=== PATIENT | female | born 2000 | race African-American/Black ===

== ENCOUNTER 2023-07-05 17:04 | Emergency (ER) | payer OTHER, SELFPAY ==
[2023-07-05 17:06] VITALS: BP 111/84; PULSE 101; RESP 17; TEMP 36.4; O2SAT 99
[2023-07-05 19:48] VITALS: BP 106/64; PULSE 57; RESP 18; O2SAT 99
[2023-07-05 21:51] LABS: Appearance Urine Clear (Clear); Bilirubin Urine Negative (Negative); Blood Urine Negative (Negative); Color Urine Yellow (Yellow); Glucose Urine UA Negative (Negative); Ketones Urine 1+ mg/dL (Negative); Leukocyte Esterase Ur Negative LEU/UL (Negative); Nitrate Urine Negative (Negative); Protein Urine Negative (Negative); Specific Grav Ur 1.025 (1.001-1.035); Urobilinogen Urine 0.2 mg/dL (<2.0)
[2023-07-05 22:01] LABS: Add Urine Microscopic? NO
--- NOTE | 2023-07-05 22:06 | ED.ABDPAIN ---
HPI - Abdominal Pain General Chief Complaint: Abdominal Pain Stated Complaint: ab pain, nausea Time Seen by Provider: 07/05/23 20:23 Source: patient Mode of arrival: EMS Limitations: no limitations History of Present Illness HPI narrative: Patient is a 22-year-old female who presents the ED via EMS with report of abdominal pain. Patient reports she suddenly developed left-sided abdominal pain around 2 PM today while at school. Pain persisted and she developed nausea and vomiting. She went to the [facility] and was sent here for further evaluation. Patient reports she has had this pain several times over the past few years. She states she can usually feel when it is coming on as her stomach will start to clench. She states if she can eat something fast enough, the pain will subside. If the pain does occur, it typically resolves after taking a nap. Patient fell asleep in the ED waiting room and denies any pain currently upon my evaluation. She denies any nausea currently. She has never been evaluated for this pain before. Denies any recent illness, fevers, diarrhea, constipation, vaginal bleeding, vaginal discharge, urinary symptoms. Review of Systems Review of Systems: CONSTITUTIONAL: Denies fever, chills, or sweats. CARDIOVASCULAR: Denies chest pain. RESPIRATORY: Denies dyspnea. GASTROINTESTINAL: See HPI. GENITOURINARY: Denies dysuria or hematuria. SKIN: Denies rash or itching. MUSCULOSKELETAL: Denies back pain, joint pain, or myalgia. All systems reviewed & are unremarkable except as noted in HPI and below Exam Narrative: GENERAL: Well appearing, well-nourished, non-toxic, in no acute distress. HEAD: Normocephalic, atraumatic. NECK: Supple. No adenopathy, no masses. RESPIRATORY: Airway patent, respirations nonlabored. Clear to auscultation bilaterally, no rales, rhonchi, wheezing. CARDIOVASCULAR: Regular rate and rhythm without murmurs, rubs, or gallops. Peripheral pulses 2+ and equal bilaterally. ABDOMINAL: Soft, no tenderness throughout abdomen, nondistended, no hepatosplenomegaly. Normoactive BS. MUSCULOSKELETAL: Moves all extremities. Strength/ROM intact without gross deformities. SKIN: Warm, dry, normal color. No rashes. NEURO: A&O X3. Speech clear. Cranial nerves II-XII grossly intact. Steady gait. No ataxic movements. PSYCHIATRIC: Appropriate mood and affect. Normal interaction. Course Vital Signs Vital signs: Vital Signs Temperature 97.5 F L 07/05/23 17:06 Pulse Rate 101 H 07/05/23 17:06 Respiratory Rate 17 07/05/23 17:06 Blood Pressure 111/84 07/05/23 17:06 Pulse Oximetry 99 07/05/23 17:06 Oxygen Delivery Room Air 07/05/23 17:06 Temperature 97.5 F L 07/05/23 17:06 Pulse Rate 57 L 07/05/23 19:48 Respiratory Rate 18 07/05/23 19:48 Blood Pressure 106/64 07/05/23 19:48 Pulse Oximetry 99 07/05/23 19:48 Oxygen Delivery Room Air 07/05/23 17:06 MDM - Abdominal Pain MDM Narrative Medical decision making narrative: Patient presented to ED with left-sided abdominal pain, several year hx of similar pain, typically related to having an empty stomach. Pain resolved by the time of my evaluation. Patient asymptomatic. No abdominal tenderness on exam. No signs of surgical abdomen. Vital stable by the time of my evaluation. Urinalysis negative. Patient denies any concern for or STDs. No history of ovarian cyst that she is aware of. Patient remains asymptomatic and nontender throughout her abdomen on repeat evaluations. No indication for further imaging at this time. Laboratory studies ordered however patient is a difficult stick, issues with hemolysis. CBC did result with minimal leukocytosis of 11.3. Patient did report vomiting prior to arrival, may contribute to leukocytosis. She is denying any other infectious symptoms. CMP frequently hemolyzed. When I discussed this with patient, she refused any further blood draw. She would like to be dischar
[2023-07-05 23:31] LABS: Basophils Absolute Auto 0.1 K/mm3 (0.0-0.1); Basophils Percent Auto 0.5 % (0.2-1.2); Eosinophils Percent Auto 0.2 % (0-4.4); Hematocrit 41.7 % (37.0-47.0); Hemoglobin 12.9 g/dL (12.0-15.0); Immature Granulocyte Absolute 0.04 K/mm3 (0.00-0.031); Immature Granulocyte Percent A 0.4 % (0-0.5); Lymphocytes Absolute Auto 2.36 K/mm3 (0.9-3.2); Lymphocytes Percent Auto 20.8 % (18.3-44.2); Mean Corpuscular HGB Conc 30.9 g/dl (32-36); Mean Corpuscular Hemoglobin 24.6 pg (26-34); Mean Corpuscular Volume 79.6 fl (80-100); Mean Platelet Volume 12.1 fl (7.4-10.4); Monocytes Absolute Auto 0.4 K/mm3 (0.1-0.6); Monocytes Percent Auto 3.8 % (2.6-8.5); Neutrophils Absolute Auto 8.4 K/mm3 (1.3-6.7); Neutrophils Percent Auto 74.3 % (45.5-73.1); Platelet Count Result 332 k/mm3 (150-375); Red Blood Count 5.24 M/mm3 (4.2-5.4); Red Cell Distribution Width 15.9 % (11.5-14.5); White Blood Count 11.3 K/mm3 (4.5-10.0)
[2023-07-06 00:05] LABS: Anisocytosis 1+ (NORMAL); Giant Platelets Present; Platelet Estimate Adequate (Adequate)
[2023-07-06 00:06] LABS: Burr Cells 1+ (NORMAL); Ovalocytes 1+ (NORMAL); Schistocytes Rare (NORMAL)
== END 2023-07-06 00:39 | disposition home or self-care (01) ==
PROVIDERS: Emergency Provider Physician Assistant
DX: R10.9 Unspecified abdominal pain (principal)
CPT/HCPCS: 36415; 81003; 81025; 85025; 99283